=== PATIENT | female | born 1970 | race American Indian/Alaskan Native ===

== ENCOUNTER 2016-09-29 12:39 | Outpatient (CLI) | payer OTHER ==
[2016-09-29 13:23] LABS: Hematocrit 37.2 % (30.3-42.9); Hemoglobin 12.5 gm/dl (10.1-14.3); Mean Corpuscular HGB Conc 34 % (30-34); Mean Corpuscular Hemoglobin 33 pg (28-32); Mean Corpuscular Volume 98 fl (79-97); Platelet Count 346 K/mm3 (140-440); Red Blood Count 3.81 M/mm3 (3.65-5.03); Red Cell Distribution Width 12.9 % (13.2-15.2)
[2016-09-29 13:40] LABS: Alanine Aminotransferase 17 units/L (7-56); Albumin 3.8 g/dL (3.9-5); Albumin/Globulin Ratio 1.3 %; Alkaline Phosphatase 63 units/L (35-129); Anion Gap 15 mmol/L; BUN/Creatinine Ratio 11.42; Bilirubin,Total 0.5 mg/dL (0.1-1.2); Blood Urea Nitrogen 8 mg/dL (7-17); Calcium 9.2 mg/dL (8.4-10.2); Carbon Dioxide 27 mmol/L (22-30); Chloride 98.5 mmol/L (98-107); Glucose 146 mg/dL (65-100); Potassium 3.8 mmol/L (3.6-5.0); Sodium 137 mmol/L (137-145); Total Protein 6.8 g/dL (6.3-8.2); Uric Acid 5.1 mg/dL (3.5-7.6)
[2016-09-29 13:45] LABS: Erythrocyte Sedimentation Rate 15 mm/Hr (0-20)
[2016-09-29 14:10] LABS: Blastocytes % (Manual) 0 %; Eosinophils % (Manual) 0 % (0.0-4.3); RBC Morphology Normal
[2016-09-29 14:11] LABS: Diff Status Complete
--- NOTE | 2016-09-29 15:05 | XRay Report ---
Bilateral knee: History: Knee pain. Findings: There is narrowing noted of the medial compartment and the patellofemoral compartment right knee joint. Adjacent articular surface is sclerotic with osteophytes suggestive of moderate to severe degenerative changes. No fracture. No bony or articular abnormality noted at the medial lateral and patellofemoral compartment left knee joint. No fracture dislocation or soft tissue calcification. Impression: Moderate to severe degenerative changes medial and patellofemoral compartment right knee joint. No definite abnormality left knee joint.
--- NOTE | 2016-09-29 15:07 | XRay Report ---
Lumbar spine: Back pain. There is a grade 1 anterior L4 spondylolisthesis with questionable spondylolysis. Bilateral bony proliferation is identified around the L15 the apophyseal joints. The findings otherwise appear generally unremarkable. Impressions: L4 spondylolisthesis and probable spondylolysis.
== END 2016-09-29 12:40 | disposition home or self-care (01) ==
LOC: XRAY 12:39
PROVIDERS: ATTEND Internal Medicine Rheumatology
DX: M15.0 Primary generalized (osteo)arthritis (principal); M43.16 Spondylolisthesis, lumbar region; M79.7 Fibromyalgia; M25.762 Osteophyte, left knee; M25.761 Osteophyte, right knee; Z79.899 Other long term (current) drug therapy; M54.9 Dorsalgia, unspecified
CPT/HCPCS: 36415; 72100; 80053; 82164; 84550; 85007; 85025; 85652; 86140; 86200; 86235; 86618; 86812

== ENCOUNTER 2016-10-30 09:55 | Day surgery (SDC) | payer OTHER ==
[2016-10-30] MEDS ORDERED: NACL 0.9% 1000 ML 1,000 ML IV SCH (11:00)
[2016-10-30] MEDS ORDERED: DIPRIVAN 10 MG/ML IV ONE ×2 (13:22)
--- NOTE | 2016-10-30 13:57 | Anesthesia Consultation ---
Anesthesia Consult and Med Hx Date of service: 10/30/16 - Airway Anesthetic Teeth Evaluation: Good ROM Head & Neck: Adequate Mental/Hyoid Distance: Adequate Mallampati Class: Class I Intubation Access Assessment: Good - Pulmonary Exam CTA: Yes - Cardiac Exam Cardiac Exam: RRR - Pre-Operative Health Status ASA Pre-Surgery Classification: ASA3 Proposed Anesthetic Plan: MAC - Pulmonary Hx Smoking: No Hx Asthma: Yes (last used inhaler 1 m ago) - Cardiovascular System Hx Hypertension: Yes Hx Heart Attack/AMI: No - Central Nervous System Hx Seizures: No CVA: No - Gastrointestinal Hx Gastroesophageal Reflux Disease: Yes - Endocrine Hx Renal Disease: No Hx Liver Disease: No Hx Non-Insulin Dependent Diabetes: Yes - Other Systems Hx Obesity: Yes - Additional Comments Anesthesia Medical History Comments: NAC
--- NOTE | 2016-10-30 13:57 | Anesthesia Day of Surgery ---
Anesthesia Day of Surgery - Day of Surgery Patient Examined: Yes Patient H&P Reviewed: Yes Patient is NPO: Yes
[2016-10-30] MEDS ORDERED: WATER FOR IRRIG STERILE IR ONE (14:01)
[2016-10-30 14:40] VITALS: BP 132/87
--- NOTE | 2016-10-30 14:55 | Discharge Summary ---
Short Stay Discharge Plan Activity: advance as tolerated Weight Bearing Status: Weight Bear as Tolerated Diet: regular Additional Instructions: Post Sedation D/C Instructions When you return home you may resume your regular diet unless otherwise directed. - Go directly home from the hospital and rest quietly. You may resume normal activities tomorrow . -Do NOT drive, return to work, operate any machinery or make any important personal or business decisions today. -Do NOT drink any alcohol or take nerve or sleeping drugs. They add to the effects of the medicine still present in your body. Follow up with: MEENA TAYLOR MD [Primary Care Provider] - 7 Days
--- NOTE | 2016-10-30 14:55 | Operative Report ---
Operative Report Operative Report: Date of procedure: 10/30/2016 Procedure: Esophagogastroduodenoscopy with multiple mucosal biopsies Attending physician: Tay Melgar MD [employer] Director: Tay Melgar MD Indication: Patient is a 46-year-old female who presented with a history of recurrent heartburn and indigestion with dyspepsia and epigastric discomfort. An upper endoscopy is done to assess patient so that treatment may be directed based on the findings. Consent: Informed consent was obtained after advising the patient and family regarding nature of this procedure, its indications, potential benefits as well as possible complications including but not limited to bleeding perforation and adverse reaction to medication, infection as well as other cardiopulmonary complications. An informed written and verbal consent was then obtained after due opportunity was provided for questions and answers. Monitoring: Patient was monitored continuously with pulse oximetry and electrocardiographic recordings as well as blood pressure recordings. Vital signs remained stable throughout this procedure with no untoward events. Preoperative assessment: Patient was assessed immediately prior to this procedure for capacity to tolerate monitored anesthesia care and moderate sedation as well as general anesthesia. Patient's ASA classification is 2, Mallampati class is 2, Hyomental distance is 3. Instrument: [employer] video endoscope Medications: Propofol given intravenously in divided doses. For details please refer to anesthesia records. Description of procedure: Patient was placed in the left lateral decubitus position after achieving sedation, the endoscope was introduced into the esophagus under direct vision. It was then advanced beyond the esophagus into the stomach and then beyond the stomach into the duodenum and to the second portion of the duodenum. It was subsequently withdrawn with careful inspection of all mucosal surfaces with the following findings. Findings: The Z line was irregular at 38 cm. There was a diminutive hiatal hernia seen on entering into the stomach. There was gastric antral erythema with some erosions also seen in the antrum. Biopsies were obtained from the antrum to rule out gastritis. The duodenum was normal to second portion. Impression: Irregular Z line at 38 cm. Sliding hiatal hernia. (Diminutive). Gastric antral erythema with erosions. Patient is status post biopsies of the antrum. Plan: Follow pathology report. Continue treatment proton pump inhibitors. Maintain antireflux measures. Direct additional treatment also based on the pathology report.
== END 2016-10-30 09:56 | disposition home or self-care (01) ==
LOC: GIO 09:55
PROVIDERS: ATTEND Internal Medicine Gastroenterology
DX: K29.50 Unspecified chronic gastritis without bleeding (principal); K22.8 Other specified diseases of esophagus; K44.9 Diaphragmatic hernia without obstruction or gangrene; J45.909 Unspecified asthma, uncomplicated; I10 Essential (primary) hypertension; K21.9 Gastro-esophageal reflux disease without esophagitis; E11.9 Type 2 diabetes mellitus without complications; F41.9 Anxiety disorder, unspecified; F31.9 Bipolar disorder, unspecified; E66.9 Obesity, unspecified; Z68.32 Body mass index [BMI] 32.0-32.9, adult; Z79.84 Long term (current) use of oral hypoglycemic drugs; Z79.899 Other long term (current) drug therapy; Z87.891 Personal history of nicotine dependence; Z80.0 Family history of malignant neoplasm of digestive organs
CPT/HCPCS: 43239; 82962; 88305; 88342; J2704; J7030

== ENCOUNTER 2016-11-02 11:12 | Day surgery (SDC) | payer OTHER ==
[~2016-11-02 11:12] MED LIST: XYLOCAINE CARDIAC IV ONE
[2016-11-02] MEDS: NACL 0.9% 1000 ML 1,000 ML IV SCH ×2 (13:04→18:29)
[2016-11-02] MEDS ORDERED: DIPRIVAN 10 MG/ML IV ONE ×2 (13:22)
[2016-11-02] MEDS ORDERED: XYLOCAINE MPF 2% ONE (13:32)
[2016-11-02] MEDS ORDERED: WATER FOR IRRIG STERILE ONE (13:46)
--- NOTE | 2016-11-02 14:12 | Anesthesia Day of Surgery ---
Anesthesia Day of Surgery - Day of Surgery Patient Examined: Yes Patient H&P Reviewed: Yes Patient is NPO: Yes
--- NOTE | 2016-11-02 14:13 | Anesthesia Consultation ---
Anesthesia Consult and Med Hx Date of service: 11/02/16 - Airway Anesthetic Teeth Evaluation: Good ROM Head & Neck: Adequate Mental/Hyoid Distance: Adequate Mallampati Class: Class II Intubation Access Assessment: Probably Good - Pulmonary Exam CTA: Yes - Cardiac Exam Cardiac Exam: RRR - Pre-Operative Health Status ASA Pre-Surgery Classification: ASA3 Proposed Anesthetic Plan: MAC - Pulmonary Hx Smoking: No Hx Asthma: Yes (last used inhaler 1 m ago) - Cardiovascular System Hx Hypertension: Yes Hx Heart Attack/AMI: No - Central Nervous System Hx Neuromuscular Disorder: No (walk with cane due to bad knees, multiple arthroscopy and arthrodesis) Hx Seizures: No CVA: No - Gastrointestinal Hx Gastroesophageal Reflux Disease: Yes - Endocrine Hx Renal Disease: No Hx Liver Disease: No Hx Non-Insulin Dependent Diabetes: Yes - Other Systems Hx Obesity: Yes - Additional Comments Anesthesia Medical History Comments: NAC
[2016-11-02 14:34] VITALS: BP 112/73
--- NOTE | 2016-11-02 14:55 | Post Anesthesia Evaluation ---
- Post Anesthesia Evaluation Patient Participated: Yes Airway Patent: Yes Stable Respiratory Function: Yes Nausea/Vomiting: No Temp > 96.8F: Yes Pain Manageable: Yes Adequeate Hydration: Yes Anesthesia Complications: No Block Receding Appropriately: Not Applicable Patient on Ventilator: No
--- NOTE | 2016-11-02 16:20 | Operative Report ---
Operative Report Operative Report: Date of procedure: 11/02/2016 Procedure: Colonoscopy. Attending physician: Tay Melgar MD [employer] Consultant: Tay Melgar MD Indication: Patient is a 46-year-old female who presents for screening colonoscopy. A colonoscopy service to evaluate patient for colorectal cancer screening.. Consent: Informed consent was obtained after advising the patient and family regarding nature of this procedure, its indications, potential benefits as well as possible complications including but not limited to bleeding perforation and adverse reaction to medication, infection as well as other cardiopulmonary complications. An informed written and verbal consent was then obtained after due opportunity was provided for questions and answers. Monitoring: Patient was monitored continuously with pulse oximetry and electrocardiographic recordings as well as blood pressure recordings. Vital signs remained stable throughout this procedure with no untoward events. Preoperative assessment: Patient was assessed immediately prior to this procedure for capacity to tolerate monitored anesthesia care and moderate sedation as well as general anesthesia. Patient's ASA classification is 2, Mallampati class is 2, Hyomental distance is 3. Instrument: [employer] video colonoscope Medications: Propofol given intravenously in divided doses. For details please refer to anesthesia records. Description of procedure: Patient was placed in the left lateral decubitus position after achieving sedation, a digital rectal examination was performed following which the colonoscope was introduced into the anal verge and advanced to the cecum which was identified by the ileocecal valve, the appendiceal orifice, as well as by the cecal strap and direct transillumination. The colonoscope was subsequently withdrawn with careful inspection of all mucosal surfaces. Patient tolerated this procedure well and was subsequently taken to the recovery room. The following findings were noted. Findings: The entirety of the colon to the cecum was normal. On the retroflex view at the anal verge, patient had internal hemorrhoids. Impression: Normal Colonoscopy. Internal hemorrhoids. Plan: Follow pathology report. High-fiber diet. Repeat colonoscopy in 10 years.
--- NOTE | 2016-11-02 16:20 | Discharge Summary ---
Short Stay Discharge Plan Activity: advance as tolerated Weight Bearing Status: Weight Bear as Tolerated Diet: regular Additional Instructions: Post Sedation D/C Instructions When you return home you may resume your regular diet unless otherwise directed. -Go directly home from the hospital and rest quietly. You may resume normal activities tomorrow. -Do NOT drive, return to work, operate any machinery or make any important personal or business decisions today. -Do NOT drink any alcohol or take nerve or sleeping drugs. They add to the effects of the medicine still present in your body. Follow up with Dr. Melgar in 2 weeks. Follow up with: MEENA TAYLOR MD [Primary Care Provider] - 7 Days
== END 2016-11-02 11:13 | disposition home or self-care (01) ==
LOC: GIO 11:12
PROVIDERS: ATTEND Internal Medicine Gastroenterology
DX: Z12.11 Encounter for screening for malignant neoplasm of colon (principal); K64.8 Other hemorrhoids; J45.909 Unspecified asthma, uncomplicated; K21.9 Gastro-esophageal reflux disease without esophagitis; E11.9 Type 2 diabetes mellitus without complications; E66.9 Obesity, unspecified; Z68.31 Body mass index [BMI] 31.0-31.9, adult; Z87.891 Personal history of nicotine dependence
CPT/HCPCS: 82962; G0121; J2704; J7030; J2001

== ENCOUNTER 2016-11-07 10:46 | Outpatient (CLI) | payer OTHER ==
--- NOTE | 2016-11-07 12:21 | Magnetic Resonance Report ---
MR LOWER EXTREMITY JOINT RIGHT WITHOUT CONTRAST HISTORY: Right knee arthritis, right knee pain. TECHNIQUE: Multisequence, multiplanar MRI without IV contrast. COMPARISON: Bilateral knee x-ray performed 09/29/16. FINDINGS: There is complete or near complete cartilage loss in the medial compartment of the right knee. Mild articular surface sclerosis and subchondral edema/contusion is identified in the medial compartment. There is no evidence for fracture or bone lesion. The remaining bone marrow signal is within normal limits. Cartilage within the lateral compartment and patellofemoral space is within normal limits. The lateral meniscus is within normal limits. The medial meniscus is severely thinned and poorly demonstrated on this exam. There is certainly advanced degeneration. A degenerative tear in the posterior horn is suspected. The ACL is not confidently identified. Rupture is suspected until proven otherwise. The PCL, MCL, LCL complex and extensor complex are intact and within normal limits. A moderate joint effusion extends to the suprapatellar bursa. There is a large popliteal cyst measuring 5.8 x 2.9 x 3.1 cm. IMPRESSION: Advanced osteoarthritic changes primarily in the medial compartment with complete or near-complete cartilage loss. Myxoid degeneration of the medial meniscus and probable degenerative tear in the posterior horn. The ACL is not identified and presumably ruptured. Moderate joint effusion and large popliteal cyst.
== END 2016-11-07 10:47 | disposition home or self-care (01) ==
LOC: MRI 10:46
PROVIDERS: ATTEND General Practice
DX: M17.11 Unilateral primary osteoarthritis, right knee (principal); M25.461 Effusion, right knee; M71.21 Synovial cyst of popliteal space [Baker], right knee; M24.661 Ankylosis, right knee
CPT/HCPCS: 73721